=== PATIENT | female | born 2000 | race African-American/Black ===

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

== ENCOUNTER 2020-06-29 12:15 | Emergency (ER) | payer BC, OTHER ==
[2020-06-29 12:25] VITALS: BP 100/66; PULSE 84; TEMP 97.6; BMI 24.3
--- NOTE | 2020-06-29 12:25 | PDOC ---
Rapid Medical Evaluation Time Seen by Provider: 06/29/20 12:19 Medical Evaluation: Allergies Allergy/AdvReac Type Severity Reaction Status Date / Time No Known Allergies Allergy Verified 01/02/18 17:40 06/29/20 12:22 I performed a brief in-person evaluation of this patient. Pt is a 19 y/o female with complaint of lower abdominal pain for and cramping for the last 3 months intermittently. She denies fevers or chills. No associated with her menses. Pertinent physical exam findings: No significant abdominal pain. No CVA tenderness. I have ordered the following: UA, urine culture, urine preg Patient to proceed to ED for further evaluation. Discharge Disposition - Diagnosis Abdominal pain - Referrals - Patient Instructions - Post Discharge Activity
--- OUTSIDE RECORDS SUMMARY | 2020-06-29 13:07 | XMS ---
:2000 Author Organization [facility] Support Name Relationship Address Phone NORM Unavailable Unavailable Unavailable HETAL BONILLA MOTHER [address] [place] [address] n/a, n/a Unavailable [address] [phone] [place] [address] Re-disclosure Warning The records that you are about to access may contain information from federally- assisted alcohol or drug abuse programs. If such information is present, then the following federally mandated warning applies: This information has been disclosed to you from records protected by federal confidentiality rules (42 CFR part 2). The federal rules prohibit you from making any further disclosure of this information unless further disclosure is expressly permitted by the written consent of the person to whom it pertains or as otherwise permitted by 42 CFR part 2. A general authorization for the release of medical or other information is NOT sufficient for this purpose. The Federal rules restrict any use of the information to criminally investigate or prosecute any alcohol or drug abuse patient.The records that you are about to access may contain highly sensitive health information, the redisclosure of which is protected by Article 27-F of the [facility] Public Health law. If you continue you may haveaccess to information: Regarding HIV / AIDS; Provided by facilities licensed or operated by the [facility] Office of Mental Health; or Provided by the [facility] Office for People With Developmental Disabilities. If such information is present, then the following [facility] mandated warning applies: This information has been disclosed to you from confidential records which are protected by state law. State law prohibits you from making any further disclosure of this information without the specific written consent of the person to whom it pertains, or as otherwise permitted by law. Any unauthorized further disclosure in violation of state law may result in a fine or fdc sentence or both. A general authorization for the release of medical or other information is NOT sufficient authorization for further disclosure. Insurance Providers Payer name Policy type Policy ID Covered Covered green party's Policy P gem / Coverage green party ID relationship to [id number] - [id number] [place] [id number] [facility]
[2020-06-29] MEDS ORDERED: SODIUM CHLORIDE 0.9% 500 ML INFUS.BAG IV ONE (13:17)
[2020-06-29] MEDS ORDERED: ACETAMINOPHEN 1000 MG/100 ML VIAL (NON FORMULARY) IVPB ONE (13:17)
[2020-06-29] MEDS ORDERED: METOCLOPRAMIDE HCL INJECTION 10 MG/2 ML VIAL IVPUSH ONE (13:17)
--- NOTE | 2020-06-29 13:24 | PDOC ---
History of Present Illness - General Chief Complaint: Pain Stated Complaint: ABD PAIN/ HEADACHES Time Seen by Provider: 06/29/20 12:19 History Source: Patient Exam Limitations: No Limitations - History of Present Illness Initial Comments: 06/29/20 13:20 19-year-old female denies past medical history presents complaining of intermittent lower abdominal pain x 3 months. Reports frontal headache with slight photosensitivity for 5 days. Frontal headache is better today without intervention. Denies neck pain, rash, changes in vision, bloating, weight loss, chest pain, shortness of breath, fever, chills, diarrhea, vomiting, recent illness, recent travel, known sick contacts, back pain, urinary complaints. Reports she was evaluated by her autoclave operator 1 week ago, negative urine test at that time and negative testing for STIs. States last sexually active with male 3 months ago. , one termination of . LMP 06/04/20. Denies taking any medication today. Denies surgical history ROS: as above PE: GENERAL: well-appearing, NAD HEAD: NCAT EYES: Pupils equal, round and reactive to light, sclera anicteric, conjunctiva clear ENT: pharynx: no erythema, no exudate, uvula midline NECK: supple CHEST: nontender RESP: clear, no w/r/r CARDIO: rrr, no m/g/r ABD: +BS, soft, nontender, non distended BACK: no midline spinal ttp, no CVAT EXTREMITIES: Normal range of motion, no edema NEUROLOGICAL: Normal speech, normal gait SKIN: Warm, Dry Is this a multiple visit Asthma Patient?: No Past History - Medical History Allergies/Adverse Reactions: Allergies Allergy/AdvReac Type Severity Reaction Status Date / Time No Known Allergies Allergy Verified 06/29/20 12:25 Home Medications: Ambulatory Orders Ibuprofen 600 mg PO QID #20 tablet 01/02/18 COPD: No DVT: No - Reproductive History Is Patient Now?: No - Immunization History Immunization Up to Date: Yes - Psycho-Social/Smoking History Smoking History: Never smoked Have you smoked in the past 12 months: No Information on smoking cessation initiated: No - Substance Abuse Hx (Audit-C & DAST Scrn) How often the patient has a drink containing alcohol: Never Score: In Men: 4 or > Positive; In Women: 3 or > Positive: 0 Screen Result (Pos requires Nsg. Audit-10AR): Negative In the last yr the pt used illegal drug/Rx for NonMed reason: No Score: Yes response is considered Positive: 0 Screen Result (Positive result requires Nsg. DAST-10): Negative *Physical Exam - Vital Signs Last Vital Signs Temp Pulse Resp BP Pulse Ox 97.6 F 84 18 100/66 100 06/29/20 12:23 06/29/20 12:23 06/29/20 12:23 06/29/20 12:23 06/29/20 12:23 ED Treatment Course - LABORATORY CBC & Chemistry Diagram: 06/29/20 13:40 06/29/20 13:40 Medical Decision Making - Medical Decision Making 06/29/20 13:23 19-year-old female denies past medical history presents complaining of intermittent lower abdominal pain x 3 months. Reports frontal headache with slight photosensitivity for 5 days. Frontal headache is better today without intervention. Denies neck pain, rash, changes in vision, bloating, weight loss, chest pain, shortness of breath, fever, chills, diarrhea, vomiting, recent illness, recent travel, known sick contacts, back pain, urinary complaints. Reports she was evaluated by her autoclave operator 1 week ago, negative urine test at that time and negative testing for STIs. States last sexually active with male 3 months ago. , one termination of . LMP 06/04/20. Denies taking an y medication today. Labs, UA, urine culture Urine IV fluids IV Tylenol, IV Reglan Reassess 06/29/20 15:17 Reviewed labs and UA with patient Benign abdominal exam test negative Patient feels much better after IV fluids, IV Tylenol and IV Reglan Agrees with discharge plan Advised patient to remain hydrated Patient will schedule a follow-up appointment with her autoclave operator in 1 to 2- weeks Return precautions discussed 06/29/20 15:18 Discharge - Discharge Information Problems reviewed: Yes Clinical Impression/Diagnosis: Abdominal pain Qualifiers: Abdominal location: generalized Qualified Code(s): R10.84 - Generalized abdominal pain Condition: Stable Disposition: HOME - Admission No - Follow up/Referral - Patient Discharge Instructions Additional Instructions: Schedule a follow-up appointment with your primary care doctor within 1 week Remain hydrated If you develop worsening abdominal pain, fever, chills, vomiting, diarrhea or any concern return to ED - Post Discharge Activity
[2020-06-29] MEDS ORDERED: METOCLOPRAMIDE HCL INJECTION 10 MG/2 ML VIAL ONE (13:29)
[2020-06-29] MEDS ORDERED: ACETAMINOPHEN INJECTION 100 ML IVPB ONE (13:30)
[2020-06-29 13:40] LABS: PH,URINE 5.5 (5.0-8.0); URINE APPEARANCE CLEAR; URINE BILIRUBIN NEGATIVE (NEGATIVE); URINE COLOR YELLOW; URINE GLUCOSE (UA) NEGATIVE (NEGATIVE); URINE KETONE NEGATIVE (NEGATIVE); URINE LEUK ESTERASE 1+ (NEGATIVE); URINE NITRITE NEGATIVE (NEGATIVE); URINE PROTEIN NEGATIVE (NEGATIVE); URINE UROBILINOGEN 0.2 mg/dL (0.2-1.0)
[2020-06-29 13:42] LABS: HCG,QUALITATIVE URINE Negative
[2020-06-29 13:53] LABS: BASO % 0.3 % (0-2.0); EOS % 0.4 % (0-4.5); HEMATOCRIT 38.8 % (32.4-45.2); HEMOGLOBIN 13.2 GM/dL (10.7-15.3); LYMPH % 30.7 % (8-40); MCH 29.1 pg (25.7-33.7); MCHC 33.9 g/dl (32.0-36.0); MEAN CELL VOLUME 85.7 fl (80-96); MEAN PLT VOLUME 7.4 fl (7.5-11.1); MONO % 5.6 % (3.8-10.2); PLATELET COUNT 230 K/MM3 (134-434); RBC 4.53 M/mm3 (3.60-5.2); RDW 13.6 % (11.6-15.6); WHITE BLOOD COUNT 8.4 K/mm3 (4.0-10.0)
[2020-06-29 14:22] LABS: POTASSIUM 4.3 mmol/L (3.5-5.1)
[2020-06-29 14:27] LABS: ALBUMIN 4.1 g/dl (3.4-5.0); BILIRUBIN,TOTAL 0.7 mg/dL (0.2-1); BLOOD UREA NITROGEN 4.2 mg/dL (7-18); CALCIUM 8.9 mg/dL (8.5-10.1); CREATININE 0.8 mg/dL (0.55-1.3); TOT PROT 7.8 g/dl (6.4-8.2)
[2020-06-29 14:53] LABS: URINE RBC 6.4 /uL (0-23.9); URINE WBC 25.5 /uL (0-25.8)
[2020-06-29 14:54] LABS: EPI CELLS 19.6 /uL (0-25.1); HYALINE CASTS 1.92 /uL (0-3.1); URINE BACTERIA 410.1 /uL (0-1359)
== END 2020-06-29 15:26 | disposition home or self-care (01) ==
LOC: JER 12:15
PROC: 3E033NZ Introduction of Analgesics, Hypnotics, Sedatives into Peripheral Vein, Percutaneous Approach (ICD-10-PCS; principal; 2020-06-29)
PROC: 3E033GC Introduction of Other Therapeutic Substance into Peripheral Vein, Percutaneous Approach (ICD-10-PCS; 2020-06-29)
DX: R10.84 Generalized abdominal pain (principal)
CPT/HCPCS: 36415; 80053; 81003; 83690; 84703; 85025; 87086; 99285-25; J0131

== ENCOUNTER 2021-05-06 12:31 | Emergency (ER) | payer BC ==
[2021-05-06 12:53] VITALS: TEMP 97.8; BMI 22.8
[2021-05-06] MEDS ORDERED: KETOROLAC TROMETHAMINE 60 MG/2 ML VIAL IM ONE (14:10)
[2021-05-06] MEDS ORDERED: KETOROLAC TROMETHAMINE 30 MG/1 ML VIAL ONE (14:42)
[2021-05-06 15:55] VITALS: BP 118/75; PULSE 68
== END 2021-05-06 15:52 | disposition home or self-care (01) ==
LOC: JER 12:31 → JERFT 12:31
PROC: 3E023GC Introduction of Other Therapeutic Substance into Muscle, Percutaneous Approach (ICD-10-PCS; principal; 2021-05-06)
DX: M54.2 Cervicalgia (principal)
CPT/HCPCS: 70360-TC-FY; 72040-TC; 84703; 99284-25

== ENCOUNTER 2021-06-02 12:49 | Emergency (ER) | payer BC ==
[2021-06-02 12:54] VITALS: BP 99/65; PULSE 56; TEMP 98; BMI 24.4
[2021-06-02 14:09] LABS: HCG,QUALITATIVE URINE Positive
[2021-06-02 14:13] LABS: EPI CELLS 35 /uL (0-25.1); HYALINE CASTS 1 /uL (0-3.1); URINE APPEARANCE CLEAR; URINE BACTERIA 295 /uL (0-1359); URINE BILIRUBIN NEGATIVE (NEGATIVE); URINE COLOR YELLOW; URINE GLUCOSE (UA) NEGATIVE (NEGATIVE); URINE KETONE 1+ (NEGATIVE); URINE LEUK ESTERASE TRACE (NEGATIVE); URINE NITRITE NEGATIVE (NEGATIVE); URINE PROTEIN NEGATIVE (NEGATIVE); URINE RBC 3 /uL (0-23.9); URINE WBC 26 /uL (0-25.8)
[2021-06-02 15:37] LABS: BASO % 0.3 % (0-2.0); EOS % 0.4 % (0-4.5); HEMATOCRIT 36.6 % (32.4-45.2); HEMOGLOBIN 12.7 GM/dL (10.7-15.3); MCH 30.3 pg (25.7-33.7); MCHC 34.8 g/dl (32.0-36.0); MEAN CELL VOLUME 87.1 fl (80-96); MEAN PLT VOLUME 7.8 fl (7.5-11.1); NEUT % 71.3 % (42.8-82.8); PLATELET COUNT 219 10^3/uL (134-434); RDW 13.2 % (11.6-15.6); WHITE BLOOD COUNT 10.7 K/mm3 (4.0-10.0)
[2021-06-02 15:59] LABS: CALCIUM 9.1 mg/dL (8.5-10.1)
[2021-06-02 16:00] LABS: ALBUMIN 4.1 g/dl (3.4-5.0); BLOOD UREA NITROGEN 8.6 mg/dL (7-18)
[2021-06-02 16:03] LABS: CREATININE 0.7 mg/dL (0.55-1.3)
[2021-06-02 16:04] LABS: BILIRUBIN,TOTAL 0.8 mg/dL (0.2-1); TOT PROT 7.6 g/dl (6.4-8.2)
[2021-06-02 16:53] LABS: HIV INTERPRETATION NEGATIVE (NEGATIVE)
== END 2021-06-02 17:31 | disposition home or self-care (01) ==
LOC: JERFT 12:49
DX: T74.21XA Adult sexual abuse, confirmed, initial encounter (principal); Z32.01 Encounter for pregnancy test, result positive
CPT/HCPCS: 36415; 76817-TC; 80053; 81003; 84703; 85025; 86704; 86706; 86780; 86803; 87086; 87340; 87389; 87491; 87517; 87591; 99284-25

== ENCOUNTER 2021-07-15 19:01 | Emergency (ER) | payer BC, OTHER ==
[2021-07-15 19:18] VITALS: BP 91/54; PULSE 91; TEMP 97.8; BMI 22.7
[2021-07-15 20:43] LABS: EPI CELLS 16 /uL (0-25.1); HYALINE CASTS 3 /uL (0-3.1); PH,URINE 6.5 (5.0-8.0); URINE APPEARANCE CLEAR; URINE BACTERIA 165 /uL (0-1359); URINE BILIRUBIN NEGATIVE (NEGATIVE); URINE COLOR YELLOW; URINE GLUCOSE (UA) NEGATIVE (NEGATIVE); URINE KETONE 1+ (NEGATIVE); URINE LEUK ESTERASE 1+ (NEGATIVE); URINE NITRITE NEGATIVE (NEGATIVE); URINE PROTEIN NEGATIVE (NEGATIVE); URINE RBC 4 /uL (0-23.9); URINE WBC 28 /uL (0-25.8)
== END 2021-07-15 20:56 | disposition home or self-care (01) ==
LOC: JER 19:01
DX: O23.41 Unspecified infection of urinary tract in pregnancy, first trimester (principal); Z3A.12 12 weeks gestation of pregnancy
CPT/HCPCS: 36415; 81003; 87086; 87491; 87591; 99283-25

== ENCOUNTER 2021-07-29 11:32 | Emergency (ER) | payer BC, OTHER ==
[2021-07-29 11:45] VITALS: BP 92/59; PULSE 109; TEMP 98.4; BMI 23.3
[2021-07-29 13:38] LABS: SYPHILIS W/ RPR CONF NON-REACTIVE (NONREACTIVE)
[2021-07-29 14:08] LABS: HIV INTERPRETATION NEGATIVE (NEGATIVE)
== END 2021-07-29 12:44 | disposition home or self-care (01) ==
LOC: JER 11:32
DX: Z20.2 Contact with and (suspected) exposure to infections with a predominantly sexual mode of transmission (principal)
CPT/HCPCS: 36415; 86695; 86696; 86780; 87389; 99283-25

== ENCOUNTER 2021-10-06 09:47 | Emergency (ER) | payer BC, OTHER ==
[2021-10-06 09:55] VITALS: BP 102/60; PULSE 68; TEMP 98; BMI 23.7
[2021-10-06 10:59] LABS: EPI CELLS 36 /uL (0-25.1); HCG,QUALITATIVE URINE Negative; HYALINE CASTS 0 /uL (0-3.1); URINE APPEARANCE CLEAR; URINE BACTERIA 118 /uL (0-1359); URINE BILIRUBIN NEGATIVE (NEGATIVE); URINE COLOR YELLOW; URINE GLUCOSE (UA) NEGATIVE (NEGATIVE); URINE KETONE NEGATIVE (NEGATIVE); URINE LEUK ESTERASE TRACE (NEGATIVE); URINE NITRITE NEGATIVE (NEGATIVE); URINE PROTEIN NEGATIVE (NEGATIVE); URINE RBC 3 /uL (0-23.9); URINE WBC 16 /uL (0-25.8)
[2021-10-06] MEDS ORDERED: IBUPROFEN 600 MG TABLET (FP) PO ONE ×2 (11:48→11:58)
== END 2021-10-06 12:04 | disposition home or self-care (01) ==
LOC: JERFT 09:47
DX: Z20.2 Contact with and (suspected) exposure to infections with a predominantly sexual mode of transmission (principal); Z32.02 Encounter for pregnancy test, result negative; M54.2 Cervicalgia
CPT/HCPCS: 36415; 81003; 84703; 87491; 87591; 99283-25

== ENCOUNTER 2021-12-01 05:47 | Emergency (ER) | payer BC, OTHER ==
[2021-12-01 06:30] VITALS: BP 113/78; PULSE 112; TEMP 97.8; BMI 22.1
== END 2021-12-01 08:30 | disposition left against medical advice (07) ==
LOC: JER 05:47
DX: S16.1XXA Strain of muscle, fascia and tendon at neck level, initial encounter (principal); X50.0XXA Overexertion from strenuous movement or load, initial encounter; Z32.02 Encounter for pregnancy test, result negative
CPT/HCPCS: 99281-25

== ENCOUNTER 2021-12-26 22:50 | Emergency (ER) | payer BC ==
[2021-12-26 23:06] VITALS: BP 113/77; PULSE 93; TEMP 97.7; BMI 22.0
== END 2021-12-27 00:35 | disposition home or self-care (01) ==
LOC: JER 22:50
DX: F12.929 Cannabis use, unspecified with intoxication, unspecified (principal)
CPT/HCPCS: 84703; 99283-25